=== PATIENT | female | born 1980 | race Caucasian/White ===

== ENCOUNTER 2016-07-19 16:27 | Emergency (ER) | payer OTHER ==
[2016-07-19 16:35] VITALS: BP 136/83; PULSE 97; RESP 18; TEMP 97.4
[2016-07-19] MEDS ORDERED: DIPH,PERTUS(ACELL)TETVAC-LF 0.5 ML VIAL IM ONE (16:39)
--- NOTE | 2016-07-19 17:15 | ED ---
Wound/Laceration HPI - General Chief Complaint: Wound/Laceration Stated Complaint: rt hand lac Time Seen by Provider: 07/19/16 16:31 Source: patient, RN notes reviewed, old records reviewed Mode of arrival: ambulatory Limitations: no limitations - History of Present Illness Initial Comments: Patient is 35-year-old [employer] chief complaint of right hand laceration wound wash dishes. Patient reports that she was washing dishes and the hand came around the rim and were cut on the edge of the glass. Patient states that her tetanus is up-to-date. She reports that she clean the wound right after. She states the laceration is between her fourth and fifth finger. Has full range of motion denies any other injuries or pain. - Related Data Home Medications Medication Instructions Recorded Confirmed Aspirin 81 mg PO DAILY 11/19/14 06/25/15 Ibuprofen [Advil] 400 mg PO Q6HR PRN 11/19/14 06/25/15 Previous Rx's Medication Instructions Recorded Ondansetron Odt [Zofran ODT] 4 mg PO Q8HR PRN #15 tab 06/25/15 Allergies Allergy/AdvReac Type Severity Reaction Status Date / Time No Known Allergies Allergy Verified 06/25/15 15:27 Review of Systems ROS Statement: Those systems with pertinent positive or pertinent negative responses have been documented in the HPI. ROS Other: All systems not noted in ROS Statement are negative. Past Medical History Past Medical History: Blood Disorder History of Any Multi-Drug Resistant Organisms: None Reported Additional Past Surgical History / Comment(s): heart surgery as a child "aortic ring" Past Psychological History: No Psychological Hx Reported Smoking Status: Current every day smoker Past Alcohol Use History: None Reported Past Drug Use History: Marijuana General Exam - General Exam Comments Initial Comments: Well-appearing 35-year-old female. Patient is on appear to be in any acute distress. Limitations: no limitations General appearance: alert, in no apparent distress Head exam: Present: atraumatic, normocephalic, normal inspection Eye exam: Present: normal appearance, PERRL, EOMI. Absent: scleral icterus, conjunctival injection, periorbital swelling ENT exam: Present: normal exam, mucous membranes moist Neck exam: Present: normal inspection. Absent: tenderness, meningismus, lymphadenopathy Respiratory exam: Present: normal lung sounds bilaterally. Absent: respiratory distress, wheezes, rales, rhonchi, stridor Cardiovascular Exam: Present: regular rate, normal rhythm, normal heart sounds. Absent: systolic murmur, diastolic murmur, rubs, gallop, clicks GI/Abdominal exam: Present: soft, normal bowel sounds. Absent: distended, tenderness, guarding, rebound, rigid Extremities exam: Present: normal inspection, full ROM, normal capillary refill. Absent: tenderness, pedal edema, joint swelling, calf tenderness Back exam: Present: normal inspection Neurological exam: Present: alert, oriented X3, CN II-XII intact Psychiatric exam: Present: normal affect, normal mood Skin exam: Present: warm, dry, intact, normal color. Absent: rash Course Vital Signs 07/19/16 16:29 Temperature 97.4 F L Pulse Rate 97 Respiratory 18 Rate Blood Pressure 136/83 O2 Sat by Pulse 95 Oximetry Procedures - Laceration Laceration #1 Site: hand (between 4-5 finger) Size (cm): 1 Description: linear Depth: simple, single layer Anesthetic Used: benzocaine 0.25% Anesthesia Technique: local infiltration, nerve block Amount (mls): 1 Pre-repair: wound explored Size of Sutures: 5-0 Number of Sutures: 3 Technique: simple, interrupted Patient Tolerated Procedure: well, no complications Medical Decision Making - Medical Decision Making Well-appearing 35-year-old female to complaint of laceration over her hand. Patient states her tetanus is up-to-date. Laceration is between fourth and fifth finger. Patient given 3 sutures. Discussed close follow-up and monitor for any signs of infection. Patient agrees treatment plan will comply. Return parameters were discussed. Disposition Clinical Impression: Hand laceration Disposition: HOME SELF-CARE Condition: Good Instructions: Laceration (ED), Care For Your Stitches (ED) Additional Instructions: Please return to the emergency room in 7 days to have sutures removed. Please leave wound covered for the first 24-48 hours and then leave open to air after that time. Please use clean soap and water to clean the suture area to prevent scabbing over the top of your sutures. Please watch for any signs of infection which may include but not limited to increased pain, swelling, redness, fever or chills. Please return to the emergency room if any signs of infection do occur. Please return to the emergency room for any other concerns or complications. Referrals: None,Stated [Primary Care Provider] - 1-2 days Floridalma Calderón MD [STAFF PHYSICIAN] - 1-2 days Time of Disposition: 17:14
== END 2016-07-19 17:29 | disposition home or self-care (01) ==
LOC: EC 16:27
DX: S61.411A Laceration without foreign body of right hand, initial encounter (principal); F17.200 Nicotine dependence, unspecified, uncomplicated; Z79.82 Long term (current) use of aspirin; Z23 Encounter for immunization; W45.8XXA Other foreign body or object entering through skin, initial encounter; Y93.G1 Activity, food preparation and clean up
CPT/HCPCS: 12001; 90471; 90715; 99283

== ENCOUNTER 2018-10-03 13:37 | Emergency (ER) | payer OTHER ==
[2018-10-03 13:53] VITALS: BP 128/81; PULSE 98; RESP 18; TEMP 98.2
[2018-10-03] MEDS ORDERED: DIAZEPAM 5 MG/ML 2 ML INJ IVP STA (14:07)
[2018-10-03] MEDS ORDERED: KETOROLAC 30 MG/ML 1 ML VIAL IM STA (14:07)
--- NOTE | 2018-10-03 14:51 | ED ---
Back Pain HPI - General Chief Complaint: Back Pain/Injury Stated Complaint: Back/shoulder pain, RT arm numbness Time Seen by Provider: 10/03/18 13:58 Source: patient Limitations: no limitations - History of Present Illness Initial Comments: Patient is 38-year-old female presents emergency Department with neck pain. Patient reports vomiting approximately 3 weeks ago when she developed pain along the right side of her neck along the trapezius. Patient reports the pain was manageable until 3 days ago when she woke up from bed and felt a "pop" in the same region. Patient reports now the pain is an 8 and throbbing. Patient reports that she is unable to rotate her head to the left side. Patient also reports intermittent right-sided tingling that started approximately 2 weeks ago when she initially developed pain in the region. Patient states the pain is also exacerbated with neck flexion. Patient denies one-sided deficits. Patient denies tearing chest pain to the back, chest tightness or shortness of breath. Patient denies syncope, dizziness, lightheadedness, headache, blurry vision, nausea or vomiting. Patient reports taking a "muscle relaxer" once with minimal improvement. - Related Data Home Medications Medication Instructions Recorded Confirmed Aspirin 81 mg PO DAILY 11/19/14 06/25/15 Ibuprofen [Advil] 400 mg PO Q6HR PRN 11/19/14 06/25/15 Previous Rx's Medication Instructions Recorded Ondansetron Odt [Zofran ODT] 4 mg PO Q8HR PRN #15 tab 06/25/15 Cyclobenzaprine [Flexeril] 10 mg PO TID PRN #15 tab 10/03/18 Allergies Allergy/AdvReac Type Severity Reaction Status Date / Time No Known Allergies Allergy Verified 10/03/18 13:53 Review of Systems ROS Statement: Those systems with pertinent positive or pertinent negative responses have been documented in the HPI. ROS Other: All systems not noted in ROS Statement are negative. Past Medical History Past Medical History: Blood Disorder History of Any Multi-Drug Resistant Organisms: None Reported Additional Past Surgical History / Comment(s): heart surgery as a child "aortic ring" Past Psychological History: No Psychological Hx Reported Smoking Status: Current every day smoker Past Alcohol Use History: None Reported Past Drug Use History: Marijuana General Exam Limitations: no limitations General appearance: alert, in no apparent distress Head exam: Present: atraumatic, normocephalic, normal inspection Eye exam: Present: normal appearance, PERRL, EOMI Pupils: Present: normal accommodation ENT exam: Present: normal exam, normal oropharynx, mucous membranes moist, TM's normal bilaterally, normal external ear exam Neck exam: Present: normal inspection, tenderness (Cervical Paraspinal tenderness that radiates along the trapezius. Pain is exacerbated with shrugs. Pain exacerbated with an arm extension and abduction above 90). Absent: full ROM (Limited range of motion due to pain. Pain with left rotation of head. Pain with neck flexion) Respiratory exam: Present: normal lung sounds bilaterally Cardiovascular Exam: Present: regular rate, normal rhythm, normal heart sounds Extremities exam: Present: normal inspection, other (+2 ulnar and radial pulses, bilaterally. Equal strength on upper and lower extremities, bilaterally.). Absent: full ROM (limited range of motion of right arm due to pain.) Back exam: Present: normal inspection, full ROM Neurological exam: Present: alert, oriented X3 Psychiatric exam: Present: normal affect, normal mood Course Vital Signs 10/03/18 13:51 Temperature 98.2 F Pulse Rate 98 Respiratory 18 Rate Blood Pressure 128/81 O2 Sat by Pulse 97 Oximetry Medical Decision Making - Medical Decision Making Patient is a 8 year old female presenting to emergency Department with neck pain. X-ray of the cervical and thoracic spine was obtained. Patient was given Valium and Toradol. On reevaluation patient reports feeling better and has increased range of motion of her head. Patient advised to follow-up with orth opedics. Patient appears to have a reticulopathy causing the intermittent numbness and tingling in the right arm . X-ray of the cervical spine is negative for acute paravertebral soft tissue swelling or malalignment or foraminal narrowing on either side. X-ray of the thoracic spine is suggestive of a saturated mid thoracic kyphosis with no vertebral compression. Patient appears to have right-sided aortic arch a normal variant of azygous fissure. Patient was also given Tylenol 3 starter pack and advised not to take any [id number] until she gets home. Patient will also be discharged with Flexeril. Patient advised not to drive or operate heavy machinery when taking either medication. Patient advised to follow with orthopedics. Patient advised to take prescribed medication as directed and use warm compress in tender region. Patient and are understanding and agreeable. Case discussed and imaging reviewed with Dr. Chase who is in agreement with the treatment plan. Disposition Clinical Impression: Neck pain Disposition: HOME SELF-CARE Condition: Stable Instructions (If sedation given, give patient instructions): Cervical Strain (DC), Neck Pain (ED) Additional Instructions: Please follow-up with orthopedics. Please return to emergency department if symptoms worsen. Prescriptions: Cyclobenzaprine [Flexeril] 10 mg PO TID PRN #15 tab PRN Reason: Muscle Spasm Is patient prescribed a controlled substance at d/c from ED?: No Referrals: None,Stated [Primary Care Provider] - 1-2 days Cortes Orozco DO [Doctor of Osteopathic Medicine] - 1-2 days Time of Disposition: 15:32
--- NOTE | 2018-10-03 14:59 | XR ---
EXAMINATION TYPE: XR cervical spine 5 views comp, XR thoracic spine 3 views complete DATE OF EXAM: 10/03/2018 COMPARISON: None HISTORY: 38-year-old female with right upper back pain FINDINGS: Cervical spine: No predental space widening or prevertebral soft tissue swelling. Alignment is maintained. Disc inter spaces are preserved. No bony neural foraminal narrowing on either side. Thoracic spine: 12-appearing thoracic vertebral bodies. All pedicles are visualized. Accentuated mid thoracic kyphosi s but with preserved vertebral body height and alignment. Incidentally, there appears to be a right-sided aortic arch and azygous fissure. IMPRESSION: 1. Cervical spine: No prevertebral soft tissue swelling or malalignment. No bony neural foraminal madelyn rowing on either side. 2. Thoracic spine: Accentuated midthoracic kyphosis. No vertebral compression collapse or malalignmen t. 3. Incidental: Right-sided aortic arch and normal variant azygous fissure.
[2018-10-03] MEDS ORDERED: ACET/COD 300 MG/30 MG STARTER PACK 6 TAB BTL PO STA (15:15)
== END 2018-10-03 15:45 | disposition home or self-care (01) ==
LOC: EC 13:37
DX: M54.2 Cervicalgia (principal); R20.2 Paresthesia of skin; F17.200 Nicotine dependence, unspecified, uncomplicated; Z79.82 Long term (current) use of aspirin
CPT/HCPCS: 72072; 72050; 99283; 96374; 96372; J3360; J1885

== ENCOUNTER 2018-10-09 01:26 | Emergency (ER) | payer OTHER ==
[2018-10-09 01:38] VITALS: BP 123/84; PULSE 89; RESP 20; TEMP 98.1
[2018-10-09] MEDS ORDERED: DIAZEPAM 5 MG/ML 2 ML INJ IM ONE (02:01)
[2018-10-09] MEDS ORDERED: KETOROLAC 30 MG/ML 1 ML VIAL IM STA (02:01)
[2018-10-09] MEDS ORDERED: predniSONE 50 MG TAB PO STA (02:01)
--- NOTE | 2018-10-09 02:04 | ED ---
General Adult HPI - General Chief complaint: Extremity Injury, Upper Stated complaint: BacK/Neck Pain Time Seen by Provider: 10/09/18 01:44 Source: patient Mode of arrival: ambulatory Limitations: no limitations - History of Present Illness Initial comments: 38 year-old female patient presents to the emergency department today for evaluation of right shoulder and arm pain. Patient states that she has been having this pain for the last 2 weeks. Patient states this started after an episode of vomiting. Patient states that she had her head turned into where angle when she vomited and started having pain to the right side of the neck radiating down to the shoulder and elbow. Patient states that she is having some numbness to the thumb and index finger on the right hand. Patient states she was seen and evaluated for this here a few days ago did have x-rays of the neck and back which showed nothing. Patient states she was diagnosed with a cer vical strain and discharge. Patient states she has been taking Tylenol with Codeine and Flexeril which seem to be helping for short time however today symptoms worsened. Patient states she is having a sharp sensation radiating from the right shoulder down to the right elbow. Patient states that the pain seems to be worsening. 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 She denies any chest pain, shortness of breath, fever, or chills with this. Patient states pain does worsen with movement of the head especially when turning to the left. Denies any history of neck or shoulder issues. Patient denies any recent rash, abdominal pain, nausea, vomiting, diarrhea, constipation, back pain, dizziness, weakness, hematuria, dysuria, urinary urgency, urinary frequency, headache, visual changes, or any other complaints. - Related Data Previous Rx's Medication Instructions Recorded Acetaminophen-Codeine 300-30mg 1 tab PO Q6H PRN #12 tablet 10/09/18 [Tylenol #3] Cyclobenzaprine [Flexeril] 10 mg PO TID #15 tab 10/09/18 predniSONE 50 mg PO DAILY #5 tablet 10/09/18 Allergies Allergy/AdvReac Type Severity Reaction Status Date / Time No Known Allergies Allergy Verified 10/03/18 13:53 Review of Systems ROS Statement: Those systems with pertinent positive or pertinent negative responses have been documented in the HPI. ROS Other: All systems not noted in ROS Statement are negative. Past Medical History Past Medical History: Blood Disorder History of Any Multi-Drug Resistant Organisms: None Reported Additional Past Surgical History / Comment(s): heart surgery as a child "aortic ring" Past Psychological History: No Psychological Hx Reported Smoking Status: Current every day smoker Past Alcohol Use History: None Reported Past Drug Use History: Marijuana General Exam Limitations: no limitations General appearance: alert, in no apparent distress, other (This is a well- developed, well-nourished adult female patient in mild distress related to pain. Vital signs upon presentation are temperature 98.1F, pulse 89, respirations 20, blood pressure 123/84, pulse ox 98% on room air.) Eye exam: Present: normal appearance, PERRL, EOMI. Absent: scleral icterus, conjunctival injection, periorbital swelling ENT exam: Present: normal exam, normal oropharynx, mucous membranes moist Neck exam: Present: normal inspection, full ROM. Absent: tenderness, meningismus, lymphadenopathy Respiratory exam: Present: normal lung sounds bilaterally. Absent: respiratory distress, wheezes, rales, rhonchi, stridor Cardiovascular Exam: Present: regular rate, normal rhythm, normal heart sounds. Absent: systolic murmur, diastolic murmur, rubs, gallop, clicks GI/Abdominal exam: Present: soft, normal bowel sounds. Absent: distended, tenderness, guarding, rebound, rigid Extremities exam: Present: normal inspection, full ROM, normal capillary refill, other (Skin to the right upper external is pink, warm, dry. Cap refills less than 3 seconds. Radial pulses 2+ and equal bilaterally.). Absent: tenderness, pedal edema, joint swelling, calf tenderness Neurological exam: Present: alert, oriented X3, CN II-XII intact Psychiatric exam: Present: normal affect, normal mood Skin exam: Present: warm, dry, intact, normal color. Absent: rash Course Vital Signs 10/09/18 01:34 Temperature 98.1 F Pulse Rate 89 Respiratory 20 Rate Blood Pressure 123/84 O2 Sat by Pulse 98 Oximetry Medical Decision Making - Medical Decision Making 38 year-old female patient presented to the emergency department today for evaluation of right shoulder pain radiating down to the right elbow. Physical examination is relatively unremarkable. She is neurovascularly intact. She has good strength to the hands. Patient did have cervical and thoracic spine x- rays at her previous visit. These are reviewed and were unremarkable. Patient symptoms are consistent with cervical radiculopathy and cervical strain. She'll be treated with IM medications and oral steroids. She'll be discharged with a prescription for Flexeril and Tylenol with Codeine. We'll do a 5 day course of prednisone. She is instructed to follow-up with her primary care physician for recheck in 1-2 days. Return parameters discussed in detail. She verbalizes understanding and agrees with this plan. Disposition Clinical Impression: Cervical radiculopathy, Cervical strain Disposition: HOME SELF-CARE Condition: Good Instructions (If sedation given, give patient instructions): Cervical Strain (ED), Cervical Radiculopathy (ED) Additional Instructions: Apply warm compresses to the neck. Perform gentle range of motion. Take medications as directed. Follow-up with your primary care physician for recheck as soon as possible. Return to the emergency department immediately for any new, worsening, or concerning symptoms Prescriptions: Cyclobenzaprine [Flexeril] 10 mg PO TID #15 tab predniSONE 50 mg PO DAILY #5 tablet Acetaminophen-Codeine 300-30mg [Tylenol #3] 1 tab PO Q6H PRN #12 tablet PRN Reason: Pain Is patient prescribed a controlled substance at d/c from ED?: Yes When asked, does pt state using other controlled substances?: No If prescribed controlled substance>3 days was MAPS reviewed?: Prescribed <3 Days If opioid is for acute pain is fill amount 7 days or less?: Yes If Rx opioid, was Start Talking consent form obtained?: Yes Referrals: None,Stated [Primary Care Provider] - 1-2 days Time of Disposition: 02:03
== END 2018-10-09 02:23 | disposition home or self-care (01) ==
LOC: EC 01:26
DX: S16.1XXA Strain of muscle, fascia and tendon at neck level, initial encounter (principal); M54.12 Radiculopathy, cervical region; F17.200 Nicotine dependence, unspecified, uncomplicated; X58.XXXA Exposure to other specified factors, initial encounter
CPT/HCPCS: 99283; 96372 ×2; J3360; J1885; J7512

== ENCOUNTER 2023-02-20 08:47 | Day surgery (SDC) | payer OTHER ==
[2023-02-15 15:21] VITALS: BMI 26.4
--- NOTE | 2023-02-19 12:07 | P.HPOR ---
History of Present Illness H&P Date: 02/19/23 Subjective: This is a 42 year old female that presents today for initial evaluation regarding a 4 year history of a progressively increasing size dorsal wrist mass. She first noticed it when it was small at a chiropractic appointment and over the past several years has noticed is has increased in size. 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 She denies any injury or inciting event. She denies any numbness. Physical Examination: RUE: AIN/PIN/Radial/Ulnar/Median motor intact. Radial/Ulnar/Median SILT. 2+/4 Radial/Ulnar pulses palpated. 5/5 APB, 5/5 FDI. Negative Finkelsteins, negative CMC grind, negative Durkan's compression. 3x3cm dorsal soft tissue mass at radiocarpal joint. Wrist F/E 70/85. Imaging: X-Rays of the right hand, 3 views taken today demonstrate no abnormality. Impression: 1.) Right wrist dorsal soft tissue mass Plan: Diagnosis and treatment options were discussed with the patient. We discussed continued observation vs soft tissue mass excision and she wishes to proceed with surgery due to it being present for 4 years now. She is scheduled for a right wrist arthrotomy with dorsal soft tissue mass excision. 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 The patient was agreeable with this plan. CC: Tracy Barraza OUT PATIENT THERAPIST -Randy Ireland DO Orthopedic Hand/Upper Extremity Surgeon Past Medical History Past Medical History: Blood Disorder Additional Past Medical History / Comment(s): WAS TOLD MISSING PROTEIN C AND F WHEN SHE HAD HEART SX AT AGE 16 History of Any Multi-Drug Resistant Organisms: None Reported Additional Past Surgical History / Comment(s): heart surgery as a child "aortic ring" Past Anesthesia/Blood Transfusion Reactions: No Reported Reaction Smoking Status: Current every day smoker - Past Family History Father Family Medical History: Blood Disorder Additional Family Medical History / Comment(s): MISSING PROTEIN C, F AND ONE OTHER ONE-WAS ON BLOOD THINNERS PRIOR TO PASSING Mother Family Medical History: No Reported History Medications and Allergies Home Medications Medication Instructions Recorded Confirmed Type No Known Home Medications 02/15/23 02/15/23 History Allergies Allergy/AdvReac Type Severity Reaction Status Date / Time acetaminophen [From Vicodin] AdvReac Nausea & Verified 02/15/23 15:06 Vomiting hydrocodone [From Vicodin] AdvReac Nausea & Verified 02/15/23 15:06 Vomiting Physical Examination Osteopathic Statement: *. No significant issues noted on an osteopathic structural exam other than those noted in the History and Physical/Consult.
[~2023-02-20 08:47] MED LIST: DEXAMETHASONE SOD PHOSPHATE 4 MG/ML 1 ML VIAL IV ONE; HYDROmorphone 0.5 MG/0.5 ML SYRINGE IVP PRN; LACTATED RINGERS 1,000 ML IV SCH; LIDOCAINE 1% (10MG/ML) FOR IV START INTRADERMA PRN; MIDAZOLAM 2 MG/2 ML VIAL IV PRN; ONDANSETRON 4 MG/2 ML VIAL IVP ONE
[2023-02-20] MEDS ORDERED: MIDAZOLAM 2 MG/2 ML VIAL ONE (09:51)
[2023-02-20] MEDS ORDERED: LIDOCAINE 1% INJ 10MG/ML (20 ML MDV) ONE (09:51)
[2023-02-20] MEDS ORDERED: PROPOFOL 10 MG/ML 20 ML VIAL IV ONE (09:51)
[2023-02-20] MEDS ORDERED: fentaNYL (PF) 50 MCG/ML 2 ML AMP ONE (09:51)
[2023-02-20] MEDS ORDERED: BUPIVACAINE (PF) 0.5% 30 ML VIAL SQ ONE (10:25)
[2023-02-20] MEDS ORDERED: LIDOCAINE 1% INJ 10MG/ML (20 ML MDV) SQ ONE (10:25)
--- NOTE | 2023-02-20 10:38 | P.OP ---
Date of Procedure: 02/20/23 Preoperative Diagnosis: Right wrist soft tissue mass Postoperative Diagnosis: Right wrist soft tissue mass Procedure(s) Performed: 1.) Right wrist dorsal soft tissue mass excision 3x4cm. 2.) Right wrist arthrotomy Anesthesia: ORQUIDEA Surgeon: Randy Ireland Needle Grader #1: Tolu Hutson Estimated Blood Loss (ml): 0 Condition: stable Description of Procedure: This is a 42 year old female who presents today for a right wrist soft tissue mass excision after having failed conservative treatment. Risks and benefits of surgery were discussed with the patient including bleeding, damage to surrounding tissue, infection, need for further surgery as well as risks of anesthesia including pulmonary embolism and even and the patient wished to proceed with surgical intervention. The patient was seen in the pre-operative area by myself. Consent and H&P were completed and updated. The correct extremity was marked in the pre-operative area by myself and all other questions were answered. Operative Narrative: The patient was brought to the operating room by the department of anesthesia. They remained on the portable stretcher and a rolling hand table was brought to the side of the operative extremity. Pre-operative time out was performed indicating the correct patient, procedure and laterality. All in the room agreed. Pre-operative antibiotics were given prior to skin incision. The patient was then drifted off to sleep by the department of anesthesia. A nonsterile tourniquet was then applied to the operative extremity and the right upper extremity was then prepped and draped in normal sterile fashion. The operative extremity was the exsanguinated with an esmarch bandage and the tourniquet was inflated to 250mmHg. A transverse incision was made over the dorsal aspect of the wrist overlying the prominent soft tissue mass. Blunt dissection was taken down through subcutaneous tissues taking care to preserve the superficial radial sensory branches. The distal edge of the extensor retinaculum was identified and the 4th extensor compartment tendons were gently retracted ulnarly and 2nd dorsal compartment tendons radially. Deep to the extensor tendons a 3x4cm round clear gelatinous mass was identified. The mass was carefully dissected out and direct communication of the stalk was followed down to the radiocarpal joint. A small portion of dorsal capsule was excised and arthrotomy was performed at the origin of the stalk and small amount of inflamed synovial tissue was identified an excised. Bipolar cautery was used to cauterize the origin of the stalk taking care to preserve the dorsal SLIL. The mass was collected and sent to pathology. The wound was then closed with 4-0 Monocryl suture followed by masistol and steri strips and 10cc's of 0.5 % bupivicaine was injected into the surgical area. A soft dressing consisting of 4x4s, cast padding and an delmi wrap was applied. Tourniquet was let down and the digits had immediate normal perfusion. Tolu YOO was present for the case in it's entirety to assist in retraction and protection of vital neurovascular structures. The patient was then transferred to PACU in stable condition. Randy Ireland D.O. Orthopedic Hand/Upper Extremity Surgeon
[2023-02-20 10:50] VITALS: TEMP 97.1
[2023-02-20 11:46] VITALS: BP 107/74; PULSE 79
[2023-02-20 11:47] VITALS: RESP 20
== END 2023-02-20 12:07 | disposition home or self-care (01) ==
LOC: OR 08:47
PROVIDERS: ATTEND Orthopaedic Surgery Hand Surgery
DX: M67.431 Ganglion, right wrist (principal); F17.200 Nicotine dependence, unspecified, uncomplicated; Z88.5 Allergy status to narcotic agent
CPT/HCPCS: 81025; 88304; 25111; J2250; J1100; J2405; J0690; J2001; J3010; J2704; J0665

== ENCOUNTER → 2023-04-12 | Outpatient (CLI) | payer OTHER ==
--- NOTE | 2023-04-16 11:53 | MM ---
Reason for Exam: Screening (asymptomatic). Baseline mammogram. Patient History: Menarche at age 12. First Full-Term at age 24. Patient has history of breast feeding. Last menstrual period: 03/30/2023 Risk Values: Liz 5 year model risk: 0.5%. NCI Lifetime model risk: 9.9%. Prior Study Comparison: Patient's first Mammogram. Tissue Density: There are scattered fibroglandular densities. Findings: Analyzed By CAD. There is no suspicious group of microcalcifications or new suspicious mass. Overall Assessment: Negative, BI-RAD 1 Management: Screening Mammogram of both breasts in [address] [facility] will attempt to contact patient to return for supplemental views and ultrasound if indicated. Patient should continue monthly self-breast exams. A clinical breast exam by your physician is recommended on an annual basis. This exam should not preclude additional follow-up of suspicious palpable abnormalities. Note on Liz scores and lifetime risk: 1. A Liz score greater than 3% is considered moderate risk. If this is the case, consider specialist referral to assess eligibility for a risk reducing agent. 2. If overall lifetime risk for the development of breast cancer is 20% or higher, the patient may qualify for future screening with alternating mammogram and breast MRI. Electronically signed and approved by: Arnoldo Alejandro DO
== END | disposition home or self-care (01) ==
LOC: RADMAMWWP 16:24
PROVIDERS: ATTEND Family Medicine
DX: Z00.00 Encounter for general adult medical examination without abnormal findings (principal); Z12.31 Encounter for screening mammogram for malignant neoplasm of breast
CPT/HCPCS: 77063; 77067